=== PATIENT | male | born 1975 | race Caucasian/White ===

== ENCOUNTER 2018-09-12 08:22 | Day surgery (SDC) | payer OTHER ==
[2018-09-11 10:02] VITALS: BMI 26.2
[2018-09-12] MEDS ORDERED: Bacitracin Zinc Ointment 30 gm TUBE ONE (10:13)
[2018-09-12] MEDS ORDERED: Lidocaine 1% w/Epinephrine 1:100K 20 ML VIAL ONE (10:13)
[2018-09-12] MEDS ORDERED: Fentanyl 100 MCG/2 ML VIAL ONE ×4 (10:37→14:37)
[2018-09-12] MEDS ORDERED: Ondansetron PF 4 MG/2 ML Vial ONE (12:03)
[2018-09-12] MEDS ORDERED: PROPOFOL 200 MG/20 ML VIAL ONE (12:03)
[2018-09-12] MEDS ORDERED: Succinylcholine Chloride 20 MG/ML 10 ml SYRINGE FS ONE (12:03)
[2018-09-12] MEDS ORDERED: Dexamethasone 20 MG/5 ML VIAL ONE (12:03)
[2018-09-12] MEDS ORDERED: Lidocaine 1% PF 5 ML VIAL ONE (12:03)
[2018-09-12] MEDS ORDERED: HYDROcodone/Acetaminophen 5/325 mg Tablet ONE (15:47)
--- NOTE | 2018-09-13 08:46 | OP ---
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 PROCEDURE PERFORMED: Right superficial parotidectomy with facial nerve dissection using facial nerve monitoring for 2 hours. FINDINGS: The patient had a large tumor that extended anteriorly deep and displace the upper lower branches of the facial nerve. PROCEDURE IN DETAIL: After consent was obtained, the patient identified brought to the OR and placed on table supine position. ANESTHESIA: General endotracheal anesthesia was obtained. The patient was positioned for surgery. Facial nerve monitor probes were placed in the appropriate places and documented to be functioning. The patient was positioned and prepped and draped and an area of intended incision was infiltrated with 1% lidocaine 100,000 epinephrine. We then made an incision and carried down through the subcutaneous tissue down to the parotid fascia in the preauricular and upper cervical area with 2 fingerbreadths below the angle of mandible. Once at the level of the SMAS and platysma fascia, a facial flap was elevated and suture secured to the flap anteriorly. We then dissected along the anterior aspect of the sternocleidomastoid and preauricular area until we meticulously found the trunk of the facial nerve between the pointer cartilage and insertion of the posterior belly of the digastric muscle. We then dissected the nerve anteriorly well reflecting the tumor and parotid tissue anteriorly. This was done in a hemostatic fashion with bipolar cautery. As we dissected the tumor, the tumor was peeled away from the deep structures and actually had splayed the nerve and had a deep component. Care was made not to injure any the branches the nerve as the tumor was dissected from the surrounding tissues. Bleeding points were either clamped and tied, hemoclipped or cauterized. Ultimately, the tumor was removed and sent for histologic evaluation. Hemostasis was obtained and we turned our attention towards closing the wound. Fibrillar Surgicel was placed in the deep aspect of the wound and the skin was closed in layers with 3-0 Monocryl and 4-0 Monocryl to reapproximate the subcutaneous tissues and 6-0 Prolene for the skin. Sterile dressing was applied. Upon awakening, all branches of facial nerve working. The patient was sent to the recovery room and discharged home in stable condition. Job ID: [id number]
--- NOTE | 2018-09-16 08:44 | EKG ---
Test Reason : PREOP Blood Pressure : / mmHG Vent. Rate : 060 BPM Atrial Rate : 060 BPM P-R Int : 134 ms QRS Dur : 100 ms QT Int : 414 ms P-R-T Axes : 070 042 033 degrees QTc Int : 414 ms Normal sinus rhythm with sinus arrhythmia Normal ECG No previous ECGs available Confirmed by DR. Sybil ORNELAS ([id number]) on 09/16/2018 8:43:34 AM Referred By: AGUSTIN Confirmed By:DR. Sybil ORNELAS
== END 2018-09-12 17:20 | disposition home or self-care (01) ==
LOC: SDC 08:22
PROVIDERS: ATTEND Specialist
PROC: 0CB80ZZ Excision of Right Parotid Gland, Open Approach (ICD-10-PCS; principal; 2018-09-12)
PROC: 00BM0ZZ Excision of Facial Nerve, Open Approach (ICD-10-PCS; principal; 2018-09-12)
DX: D11.0 Benign neoplasm of parotid gland (principal); E78.00 Pure hypercholesterolemia, unspecified
CPT/HCPCS: 88307; 93005; 93010; J2001; J3010